=== PATIENT | male | born 1980 | race Caucasian/White ===

== ENCOUNTER 2023-01-10 09:09 | Outpatient (CLI) | payer MEDICAID ==
[2023-01-10] MEDS ORDERED: iohexol 300mg/ml 100ml inj. ONE (09:28)
== END 2023-01-10 23:59 | disposition home or self-care (01) ==
LOC: RAD 09:09
PROVIDERS: ATTEND Surgery
DX: K40.91 Unilateral inguinal hernia, without obstruction or gangrene, recurrent (principal); R10.30 Lower abdominal pain, unspecified; M47.816 Spondylosis without myelopathy or radiculopathy, lumbar region
CPT/HCPCS: 74177; J3490; Q9967